=== PATIENT | female | born 2005 | race Hispanic/Latino ===

== ENCOUNTER 2025-01-08 18:15 | Emergency (ER) | payer SELFPAY ==
[2025-01-08 19:04] LABS: Glucose, Urine (Dipstick) Negative (Negative); Leukocyte Negative (Negative); Protein, Urine (Dipstick) Negative (Neg-Trace); Specific Gravity, Urine 1.015 (1.005-1.030)
[2025-01-08 19:06] LABS: Pregnancy Test - Urine (BHCG) Negative (Negative); Pregu Control Background? CLEAR/WHITE (CLR/WHITE); Pregu Control Bar Appear? YES (CONTROL BAR)
[2025-01-08 19:11] LABS: Bacteria/HPF 1+ HPF (None Seen); CAUTI Indications for Culture Pelvic or flank pain; Mucous/LPF 1+ LPF (<2+); RBC/HPF 0-3 HPF (0-3); WBC/HPF 0-3 HPF (0-3)
[2025-01-08 19:12] LABS: Urine Culture Reflex No No
== END 2025-01-08 20:35 | disposition home or self-care (01) ==
LOC: NAV ERS 18:15
DX: M79.641 Pain in right hand (principal); J06.9 Acute upper respiratory infection, unspecified; N91.2 Amenorrhea, unspecified
CPT/HCPCS: 81001; 81025; 87426; 99283